=== PATIENT | female | born 1950 | race African-American/Black ===

== ENCOUNTER 2024-07-01 23:21 | Inpatient (IN) | payer OTHER, MEDICAID ==
[~2024-07-01] VITALS: Ht 152.4 cm; Wt 138.3 kg
--- NOTE | 2024-07-01 23:36 | ED.PDOC ---
History of Present Illness HPI Comments 74-year-old female presents with a chief complaint of chest pain x onset 1700 this afternoon with associated swelling to her bilateral legs. Patient states that her chest pain is localized to her right chest, non-radiating, describes as sharp, and rates her pain a 5/10. Patient was given ASA and NTG en route by EMS. Patient has history of a valve replacement in the past. Patient is alert and oriented. Chief Complaint: Chest Pain Time Seen by MD: 23:33 Primary Care Provider: ANU Vanegas Notes: Medications, Allergies Allergies: Coded Allergies: NO KNOWN ALLERGIES (Unverified , 09/17/11) Home Meds Active Scripts Cephalexin (KEFLEX CAPSULE) 250 Mg Cp, 2 CAP PO BID for 5 Days, #28 CAP Prov:CHANCE GILLIS RESIDENT 07/04/24 Reported Medications Potassium Chloride (POTASSIUM CHLORIDE CR) 10 Meq Tb, 1 TAB PO DAILY, #30 TAB 5 Refills 07/02/24 Metoprolol Succinate (Metoprolol Succinate Er) 25 Mg Tab, 25 MG PO DAILY for 30 Days, MG 07/02/24 Furosemide (Furosemide) 40 Mg Tab, 40 MG PO DAILY for 30 Days 07/02/24 Atorvastatin Calcium (ATORVASTATIN CALCIUM) 20 Mg Tab, 1 TAB PO DAILY, #30 TAB 5 Refills 07/02/24 Aspirin (Aspir-Low) 81 Mg Tab, 81 MG PO DAILY for 30 Days, MG 07/02/24 Information Source: Patient Mode of Arrival: EMS Severity: Moderate Timing: Hours Duration: Since onset Prehospital treatment: ASA, NTG Vital Signs Vital Signs Date Time Temp Pulse Resp B/P (MAP) Pulse Ox O2 Delivery O2 Flow Rate FiO2 07/02/24 00:33 98.7 93 12 130/62 (84) 95 98.7 07/02/24 00:20 Room Air* 0 21 Physical Exam General: Awake, alert and oriented. No acute distress. Skin: Skin in warm, dry and intact. Appropriate color for ethnicity. Nailbeds pink with no cyanosis. HEENT: The head is normocephalic and atraumatic. Conjunctivae are clear without exudates or hemorrhage. Sclera is non-icteric. EOM are intact. No signs of nystagmus. Eyelids are normal in appearance without swelling or lesions. Oral mucosa is pink and moist Neck: The neck is supple with normal range of motion. No JVD. Cardiac: Heart rate and rhythm are normal. No murmurs, gallops, or rubs are auscultated. Respiratory: No signs of respiratory distress. Lung sounds are clear in all lobes bilaterally without rales, ronchi, or wheezes. Abdominal: Abdomen is soft, non-tender without distention. Bowel sounds are present and normoactive in all four quadrants. Extremities: Bilateral lower extremity edema Neurological: The patient is awake, alert and oriented to person, place, and time with normal speech. Speech is clear. There is no facial asymmetry. Psychiatric: Appropriate mood and affect. Good judgement and insight. No visual or auditory hallucinations. Review of Systems: REVIEW OF SYSTEMS: No fever, no chills, or fatigue HEENT: No sore throat, no earache, no congestion, no neck pain. Cardiac: Positive chest pain. Positive palpitations. Lungs: No shortness of breath, no cough. GI: No nausea, no vomiting, no diarrhea, no constipation, no abdominal pain : No dysuria, frequency, or urgency. No hematuria. Musculoskeletal: No joint pain , no joint swelling, positive bilateral foot edema. Skin: No rash, no itching. Neuro: No headache, no dizziness, no weakness Past Medical History PAST MEDICAL HISTORY: Arthritis Surgical History: Hysterectomy Surgical History (Other): Valve Replacement Family History Family History: No family hx of Cancer Social History Smoker: Non-Smoker Alcohol: Denies ETOH Use Drugs: Denies Drug Use Lives In: Home Was a procedure done? Was a procedure done?: No EKG EKG : Pulse Rate (adult): 92 Walker: Normal Cardiac Rhythm: NSR Block: LBBB Hypertrophy: None ST: Normal Comments Independent interpretation. No STEMI Differential Dx Considerations may include: Differential diagnoses considered include acute ischemic coronary syndrome, aortic dissection, cardiac tamponade, mediastinitis, pulmonary embolus, pneumothorax, tension pneumothorax, esophageal rupture, coronary artery vasospasm, myocarditis, pericarditis, pneumonia, pulmonary edema, esophageal tear, pancreatitis, aortic stenosis, dilated cardiomyopathy, hypertrophic cardiomyopathy, mitral valve prolapse, malignancy, pleuritis, pneumomediastinum, primary pulmonary hypertension, cholecystitis, esophageal spasm, esophagus, gastritis, GERD, peptic ulcer disease, costochondritis, fibromyalgia, rib fracture, herpes zoster, radicular syndromes, thoracic outlet syndrome, somatization. X-Ray, Labs, Meds, VS Vital Signs Date Time Temp Pulse Resp B/P (MAP) Pulse Ox O2 Delivery O2 Flow Rate FiO2 07/02/24 00:33 98.7 93 12 130/62 (84) 95 98.7 07/02/24 00:20 92 07/02/24 00:20 93 12 95 Room Air* 0 21 07/01/24 23:45 92 07/01/24 23:29 98.8 97 18 93/68 (76) 96 07/01/24 23:24 92 Lab Test 07/02/24 00:42 07/02/24 00:25 07/01/24 23:35 Range/Units D-Dimer, Quantitative 1.37 H 0.0-0.49 mg/L FEU Troponin I High Sensitivity < 3 L < 3 L </=34 ng/L White Blood Count 10.3 4.4-10.8 10^3/uL Red Blood Count 4.14 4.0-5.20 10^6/uL Hemoglobin 12.3 12.2-16.2 g/dL Hematocrit 39.3 36.0-46.0 % Mean Corpuscular Volume 95.0 80.0-100.0 fL Mean Corpuscular Hemoglobin 29.9 28.0-32.0 pg Mean Corpuscular Hemoglobin Concent 31.4 L 32.0-36.0 g/dL Red Cell Distribution Width 15.2 H 11.8-14.3 % Platelet Count 146 140-450 10^3/uL Mean Platelet Volume 8.7 6.9-10.8 fL Neutrophils (%) (Auto) 46.9 37.0-80.0 % Lymphocytes (%) (Auto) 39.0 10.0-50.0 % Monocytes (%) (Auto) 11.7 0.0-12.0 % Eosinophils (%) (Auto) 1.9 0.0-7.0 % Basophils (%) (Auto) 0.5 0.0-2.0 % Neutrophils # (Auto) 4.8 1.6-8.6 10 ^3/uL Lymphocytes # (Auto) 4.0 0.4-5.4 10 ^3/uL Monocytes # (Auto) 1.2 0-1.3 10 ^3/uL Eosinophils # (Auto) 0.2 0-0.8 10 ^3/uL Basophils # (Auto) 0 0-0.2 10 ^3/uL Nucleated Red Blood Cells 0.1 % Sodium Level 143 136-145 mmol/L Potassium Level 3.8 3.5-5.1 mmol/L Chloride Level 109 H 98-107 mmol/L Carbon Dioxide Level 26 20-31 mmol/L Anion Gap 8 5-15 Blood Urea Nitrogen 12 9-23 mg/dL Creatinine 0.89 0.550-1.02 mg/dL Glomerular Filtration Rate Calc 68 >90 mL/min BUN/Creatinine Ratio 13.5 10.0-20.0 Serum Glucose 115 H 74-106 mg/dL Calcium Level 10.4 8.7-10.4 mg/dL Total Bilirubin 0.5 0.2-1.0 mg/dL Aspartate Amino Transferase (AST) 19 13-40 U/L Alanine Aminotransferase (ALT) 14 7-40 U/L Alkaline Phosphatase 107 46-116 U/L B-Type Natriuretic Peptide 23.54 0-100 pg/mL Total Protein 7.2 5.7-8.2 g/dL Albumin 4.0 3.2-4.8 g/dL Lipase 36 12-53 U/L Time of 1ST Reevaluation: 00:03 Reevaluation 1ST: Unchanged Patient Education/Counseling: Diagnosis, Treatment, Prognosis Family Education/Counseling: No Family Present Departure 1 Departure Time of Disposition: 01:22 Impression: Primary Impression: Chest pain Disposition: ADMITTED INPATIENT Condition: Stable e-Prescriptions Cephalexin (KEFLEX CAPSULE) 250 Mg Cp 2 CAP PO BID for 5 Days, #28 CAP Prov: CHANCE GILLIS RESIDENT 07/04/24 Comments I reviewed the following notes from the pt's past medical encounters: The following tests were ordered, and results were reviewed by me: Labs, imaging Additional information was gathered from interviewing the following independent historians: EMS, patient's at bedside I reviewed and agreed with the following test results read by other providers: Chest x-ray I discussed treatments and results with medical personnel and: Patient, nurse, patient's family Critical Care Note Critical Care Time?: No Stability Stability form required: No I personally scribed for WALE HUI MD ([email or web address]) on 07/01/24 at 23:36. Electronically submitted by Antwon Herrera ([email or web address]). I personally scribed for WALE HUI MD ([email or web address]) on 07/01/24 at 23:45. Electronically submitted by Antwon Herrera ([email or web address]). WALE HUI MD Jul 01, 2024 23:36
[2024-07-01 23:49] LABS: Basophils # (auto) 0 10 ^3/uL (0-0.2); Basophils % (auto) 0.5 % (0.0-2.0); Eosinophils # (auto) 0.2 10 ^3/uL (0-0.8); Eosinophils % (auto) 1.9 % (0.0-7.0); Hematocrit 39.3 % (36.0-46.0); Hemoglobin 12.3 g/dL (12.2-16.2); Mean Corpuscular Hemoglobin 29.9 pg (28.0-32.0); Mean Corpuscular Hgb Conc. 31.4 g/dL (32.0-36.0); Monocytes # (auto) 1.2 10 ^3/uL (0-1.3); Monocytes % (auto) 11.7 % (0.0-12.0); Neutrophils # (auto) 4.8 10 ^3/uL (1.6-8.6); Neutrophils % (auto) 46.9 % (37.0-80.0); Nucleated Red Blood Cells % 0.1 %; Platelet Count (auto) 146 10^3/uL (140-450); Red Blood Cells 4.14 10^6/uL (4.0-5.20); Red Cell Distribution Width 15.2 % (11.8-14.3); White Blood Cell 10.3 10^3/uL (4.4-10.8)
[2024-07-02] VITALS (9 sets, daily range): BP systolic 111–156; BP diastolic 60–111; PULSE 90–101; RESP 12–97; TEMP 97.4–98.1; O2SAT 95–98
[2024-07-02] MEDS: MORPHINE SULFATE INJ 2 MG/ml SYRG IV ONE
[2024-07-02 00:05] LABS: Alanine Aminotransferase 14 U/L (7-40); Alkaline Phosphatase 107 U/L (46-116); Anion Gap 8 (5-15); Aspartate Aminotransferase 19 U/L (13-40); BUN/Creatinine Ratio 13.5 (10.0-20.0); Blood Urea Nitrogen 12 mg/dL (9-23); Calcium 10.4 mg/dL (8.7-10.4); Carbon Dioxide 26 mmol/L (20-31); Lipase 36 U/L (12-53); Potassium 3.8 mmol/L (3.5-5.1); Sodium 143 mmol/L (136-145)
[2024-07-02 00:06] LABS: Bilirubin, Total 0.5 mg/dL (0.2-1.0); Total Protein 7.2 g/dL (5.7-8.2)
[2024-07-02 00:07] LABS: Chloride 109 mmol/L (98-107); Glucose 115 mg/dL (74-106)
[2024-07-02] MEDS: ONDANSETRON HCL 4 MG/2 ML VIAL IV ONE (00:30)
--- NOTE | 2024-07-02 01:00 | DVH ---
EXAM: XY CHEST PORTABLE CLINICAL HISTORY: cp TECHNIQUE: Single AP view of the chest WID: COMPARISON: None FINDINGS: Lines and tubes: Transcatheter aortic valve Chest: Cardiomegaly and pulmonary vascular congestion. Prominence of the main pulmonary artery. Calcified plaque projects over the aortic arch No pleural effusion, pneumothorax, or consolidation. The osseous structures are grossly intact. Multilevel thoracic spondylosis. IMPRESSION: 1. Mild cardiomegaly and pulmonary vascular congestion. 2. Prominence of the main pulmonary artery which can be seen in the setting of pulmonary hypertension .
[2024-07-02] MEDS ORDERED: NITROGLYCERIN 0.4 MG SL TAB SL PRN (01:45)
[2024-07-02] MEDS ORDERED: MORPHINE SULFATE INJ 2 MG/ml SYRG IV PRN (01:45)
[2024-07-02] MEDS: IOHEXOL 350 MG/ML 100ML IJ ONE (01:53)
--- NOTE | 2024-07-02 01:55 | DVHHPRES ---
History of Present Illness Resident Creating Document: VIVIAN WHEELER RESIDENT History of Present Illness Ms Flores, a 74-year-old black female with a history of arthritis, hysterectomy, and surgical valve replacement presented with moderate, sharp chest pain (5/10) localized to her lower right chest to the subcostal area, which began at 1700 hours, and swelling in both legs. She received ASA and NTG from EMS en route. The patient is alert, oriented, and has no known allergies. She remains hemodynamically stable and has been admitted for further evaluation and monitoring, with safety precautions in place. She is extremely poor historian and could not tell me further about her medical history but she has 3 sp ecialists [place] and has a pending evaluation likely for orthopedic procedure. She could only tell she takes aspirin and anti-lipid medication but could not clarify that if she takes warfarin given her history of valve surgery. The patient is requested to bring all the home medication and records as soon as possible to bedside with the help of the for further evaluation. Cardiovascular: Other Heme/Onc: Anemia NOS Endocrine: Osteoporosis (valve surgery.) Past Surgical History: Hysterectomy Past Surgical History Valve surgery, limited history Family History: Hyperlipidemia, Hypertension Smoke: No ALCOHOL: none Drugs: None Lives: with Family Domestic Violence: Neg Review of Systems Constitutional: Yes: Weakness, Malaise Eyes: No: Pain, Vision change, Conjunctivae inflammation, Eyelid inflammation, Other, Redness ENT: No: Ear pain, Ear discharge, Nose pain, Nose discharge, Nose congestion, Mouth pain, Mouth swelling, Throat pain, Throat swelling, Other Respiratory: No: Cough, Dry, Shortness of breath, SOB with excertion, Wheezing, Hemoptysis, Pleuritic Pain, Sputum, Wheezing, Other Cardiovascular: Chest Pain, Edema, Other Gastrointestinal: No: Nausea, Vomiting, Abdominal Pain, Diarrhea, Constipation, Melena, Hematochezia, Other Genitourinary: No Dysuria, No Frequency, No Incontinence, No Hematuria, No Retention, No Other Musculoskeletal: No: other, neck pain, shoulder pain, arm pain, back pain, hand pain, leg pain, foot pain Skin: Other Neurological: Other (Left eye ptosis) Allergies: Coded Allergies: NO KNOWN ALLERGIES (Unverified , 09/17/11) Medications Current Medications Medications Dose Ordered Sig/Romeo Route Start Time Stop Time Status Last Admin Dose Admin Nitroglycerin 0.4 mg Q5MINP PRN SL 07/02/24 01:45 UNV Morphine Sulfate 2 mg Q30M PRN IV 07/02/24 01:45 UNV Exam Vital Signs Vital Signs Date Time Temp Pulse Resp B/P (MAP) Pulse Ox O2 Delivery O2 Flow Rate FiO2 07/02/24 00:20 92 07/01/24 23:29 98.8 18 93/68 (76) 96 General Appearance: Alert, Oriented X3, Cooperative, No acute distress HEENT: Atraumatic, PERRLA, EOMI, Mucous membr. moist/pink, Other (Left eye ptosis at baseline) Respiratory: Normal air movement, Other (Basal crackles bilateral) Cardiovascular: Regular rate, Normal S1, Normal S2, No murmurs Abdominal: Normal bowel sounds, Soft, No tenderness, No hepatospenomegaly Extremities: Other (Presence of edema 3+. Pitting) Skin: No rashes, No breakdown, No significant lesion Neuro: Other (Overall patient has felt weak, deferred gait testing, gross stent intact, sensation and cranial nerves intact.) Psych/Mental Status: Mental status NL, Mood NL Labs/Xrays Labs Test 07/02/24 00:42 07/02/24 00:25 07/01/24 23:35 Range/Units D-Dimer, Quantitative 1.37 H 0.0-0.49 mg/L FEU Troponin I High Sensitivity < 3 L </=34 ng/L White Blood Count 10.3 4.4-10.8 10^3/uL Red Blood Count 4.14 4.0-5.20 10^6/uL Hemoglobin 12.3 12.2-16.2 g/dL Hematocrit 39.3 36.0-46.0 % Mean Corpuscular Volume 95.0 80.0-100.0 fL Mean Corpuscular Hemoglobin 29.9 28.0-32.0 pg Mean Corpuscular Hemoglobin Concent 31.4 L 32.0-36.0 g/dL Red Cell Distribution Width 15.2 H 11.8-14.3 % Platelet Count 146 140-450 10^3/uL Mean Platelet Volume 8.7 6.9-10.8 fL Neutrophils (%) (Auto) 46.9 37.0-80.0 % Lymphocytes (%) (Auto) 39.0 10.0-50.0 % Monocytes (%) (Auto) 11.7 0.0-12.0 % Eosinophils (%) (Auto) 1.9 0.0-7.0 % Basophils (%) (Auto) 0.5 0.0-2.0 % Neutrophils # (Auto) 4.8 1.6-8.6 10 ^3/uL Lymphocytes # (Auto) 4.0 0.4-5.4 10 ^3/uL Monocytes # (Auto) 1.2 0-1.3 10 ^3/uL Eosinophils # (Auto) 0.2 0-0.8 10 ^3/uL Basophils # (Auto) 0 0-0.2 10 ^3/uL Nucleated Red Blood Cells 0.1 % Sodium Level 143 136-145 mmol/L Potassium Level 3.8 3.5-5.1 mmol/L Chloride Level 109 H 98-107 mmol/L Carbon Dioxide Level 26 20-31 mmol/L Anion Gap 8 5-15 Blood Urea Nitrogen 12 9-23 mg/dL Creatinine 0.89 0.550-1.02 mg/dL Glomerular Filtration Rate Calc 68 >90 mL/min BUN/Creatinine Ratio 13.5 10.0-20.0 Serum Glucose 115 H 74-106 mg/dL Calcium Level 10.4 8.7-10.4 mg/dL Total Bilirubin 0.5 0.2-1.0 mg/dL Aspartate Amino Transferase (AST) 19 13-40 U/L Alanine Aminotransferase (ALT) 14 7-40 U/L Alkaline Phosphatase 107 46-116 U/L B-Type Natriuretic Peptide 23.54 0-100 pg/mL Total Protein 7.2 5.7-8.2 g/dL Albumin 4.0 3.2-4.8 g/dL Lipase 36 12-53 U/L [facility] [id number] [place] [id number] Ph: [phone] DIAGNOSTIC IMAGING Diagnostic Imaging Report : [id number] Signed PATIENT: JOSE FLORES ACCT: [id number] UNIT: [id number] : 1950 LOC: ER ROOM / BED: / AGE / SEX: 74 / F ADM STATUS: REG ER SERVICE [id number] ORDERING PHYSICIAN: AUDRA BAUTISTA DO PROCEDURE(s): CXRP - CHEST PORTABLE REASON: cp ORDER NUMBER(s): [id number], ACCESSION NUMBER(s): [id number] EXAM: XY CHEST PORTABLE CLINICAL HISTORY: cp TECHNIQUE: Single AP view of the chest WID: COMPARISON: None FINDINGS: Lines and tubes: Transcatheter aortic valve Chest: Cardiomegaly and pulmonary vascular congestion. Prominence of the main pulmonary artery. Calcified plaque projects over the aortic arch No pleural effusion, pneumothorax, or consolidation. The osseous structures are grossly intact. Multilevel thoracic spondylosis. IMPRESSION: 1. Mild cardiomegaly and pulmonary vascular congestion. 2. Prominence of the main pulmonary artery which can be seen in the setting of pulmonary hypertension. ATED BY: KYLER WEBBER MD DICTATED DATE/TIME: 07/02/2456 SIGNED BY: KYLER WEBBER MD SIGNED DATE/TIME: 07/02/2456 CC: [place] [address] Ph: [phone] DIAGNOSTIC IMAGING Diagnostic Imaging Report : [id number] Signed PATIENT: JOSE FLORES ACCT: [id number] UNIT: [id number] : 1950 LOC: [facility] ROOM / BED: [address] [place] [address] AGE / SEX: 74 / F ADM STATUS: ADM IN SERVICE 9 ORDERING PHYSICIAN: WALE HUI MD PROCEDURE(s): CTACH - CT ANGIO CHEST CONTRAST REASON: +d-dimer chest pain ? PE ORDER NUMBER(s): [id number], ACCESSION NUMBER(s): [id number] Patient Name Date of ISABELLE GARCIA 1950 [id number] Referring Physician Faxed To WALE HUI View Requested Screen Save Indication Date 07/02/2024 Exam Date Report Date 07/02/2024 07/02/2024 Examination: CTACH CLINICAL INDICATION: +d-dimer chest pain ? PE COMPARISON: None. CONTRAST USED: Intravenous. TECHNIQUE: A contrast CT study of the chest was performed with multiplanar reconstructions obtained following ALARA (As Low As Reasonably Achievable) principles. FINDINGS: Lower Neck and Thyroid: Unremarkable. Lungs and Pleura: Linear fibrotic band in the right lower lobe and right posterior pleural thickening. No acute infiltrates or effusion. No pulmonary nodules detected. Mediastinum and Great Vessels: Trachea and mainstem bronchi are normal. Mild atherosclerotic calcification of the aortic root, coronary arteries, and aortic arch. Stent present at the aortic root. Dilated pulmonary trunk (3.4 cm) and bilateral pulmonary arteries (approximately 25 mm). Changes of pulmonary hypertension. Significant tortuous course of the left common carotid artery. No mediastinal lymphadenopathy. Heart and Pericardium: Mild cardiomegaly. Normal cardiac size otherwise. No pericardial effusion. Pleural Spaces: Clear bilaterally. Chest Wall and Axillae: Unremarkable. Osseous Structures: Mild osteopenia. Vanswxfo-le-nrpqsj degenerative changes in the mid and lower thoracic spine, with prominent lateral syndesmophytes and multilevel degenerative facet arthropathy. Moderate narrowing of the neural foramina from T4-T5 to T9-T10 levels. Post-laminectomy status at C5-C6 and C6-C7 levels in the lower cervical spine. Severe degenerative changes in the bilateral glenohumeral joints, right more than left. Multiple calcified loose bodies in the right glenohumeral joint. Probable partial resorption of the right humeral head. Visualized Upper Abdomen: Liver: Mild hepatomegaly with fatty infiltration, widening of the interlobar fissures, and caudate lobe hypertrophy, suggesting liver parenchymal disease. Spleen: Borderline splenomegaly. Gallbladder, Pancreas, and Adrenal Glands: Unremarkable. Kidneys: Probable small size of the left kidney with compensatory hypertrophy of the right kidney. Vessels: Atherosclerotic calcification of the coronary arteries, aortic arch, origin of the arch vessels, and descending thoracic aorta. Atherosclerotic calcification of the abdominal aorta and visceral arteries with no significant narrowing or occlusion. IMPRESSION: 1. Lung and Pleura: Linear fibrotic band in the right lower lobe and posterior pleural thickening. 2. No acute infiltrates or effusion. 3. Cardiovascular Findings: Mild cardiomegaly. 4. Stent in the aortic root. 5. Dilated pulmonary trunk (3.4 cm) and bilateral pulmonary arteries (~25 mm). Changes of pulmonary hypertension. No acute pulmonary thromboembolism. 6. Atherosclerotic calcification of the coronary arteries, aortic arch, origin of arch vessels, and descending thoracic aorta. 7. Significant tortuosity of the left common carotid artery. 8. Liver and Spleen: Mild hepatomegaly with fatty infiltration and features of liver parenchymal disease. 9. Borderline splenomegaly. 10. Kidneys: Probable small left kidney with compensatory hypertrophy of the right kidney. 11. Skeletal Findings: Crhzckir-xr-zzvpcu degenerative changes in the mid and l ower thoracic spine with neural foraminal narrowing from T4-T5 to T9-T10 levels. 12. Severe bilateral glenohumeral joint degeneration with multiple calcified loose bodies in the right joint and probable partial resorption of the right humeral head. 13. Post-Surgical Changes: Post-laminectomy status at C5-C6 and C6-C7. Papa Sow Electronically Signed 07/02/2024 04:25 Reviewed By: DT QA By: SY DICTATED BY: LYNNE WAGNER MD DICTATED DATE/TIME: 07/02/24 0425 SIGNED BY: LYNNE WAGNER MD SIGNED DATE/TIME: 07/02/24 0537 CC: [place] [address] Ph: [phone] DIAGNOSTIC IMAGING Diagnostic Imaging Report : [id number] Signed PATIENT: JOSE FLORES ACCT: [id number] UNIT: [id number] : 1950 LOC: ER ROOM / BED: / AGE / SEX: 74 / F ADM STATUS: REG ER SERVICE ORDERING PHYSICIAN: AUDRA BAUTISTA DO PROCEDURE(s): CXRP - CHEST PORTABLE REASON: cp ORDER NUMBER(s): [id number], ACCESSION NUMBER(s): [id number] EXAM: XY CHEST PORTABLE CLINICAL HISTORY: cp TECHNIQUE: Single AP view of the chest WID: COMPARISON: None FINDINGS: Lines and tubes: Transcatheter aortic valve Chest: Cardiomegaly and pulmonary vascular congestion. Prominence of the main pu lmonary artery. Calcified plaque projects over the aortic arch No pleural effusion, pneumothorax, or consolidation. The osseous structures are grossly intact. Multilevel thoracic spondylosis. IMPRESSION: 1. Mild cardiomegaly and pulmonary vascular congestion. 2. Prominence of the main pulmonary artery which can be seen in the setting of pulmonary hypertension. ATED BY: KYLER WEBBER MD DICTATED DATE/TIME: 07/02/24 0057 SIGNED BY: KYLER WEBBER MD SIGNED DATE/TIME: 07/02/2456 CC: EKG Name: JOSE FLORES Acct: [id number] [place] [address] ELECTROCARDIOGRAM REPORT PATIENT: JOSE FLORES ACCT: [id number] : 1950 LOC: [facility] ROOM / BED: [address] [place] [address] AGE / SEX: 74 / F ADM STATUS: ADM IN SERVICE UNIT: [id number] ORDERING PHYSICIAN: AUDRA BAUTISTA DO PROCEDURE(s): EKG - ELECTROCARDIGRAM ORDER NUMBER(s): [id number], ACCESSION NUMBER(s): [id number] [facility] Test Date: 2024-07-02 Test Time: 00:20:05 Pat Name: JOSE FLORES Department: ED Room: [address] [place] [address] Gender: F Dog Beautician: NELLIE : 1950 Requested By: AUDRA BAUTISTA Order Number: [id number] Reading MD: Measurements Intervals [place] Rate: 92 P: 77 LA: 165 QRS: 32 QRSD: 153 T: 203 QT: 400 QTc: 495 Interpretive Statements Sinus rhythm Prominent P waves, nondiagnostic Left bundle branch block Please click the below link to view image of tracing. DICTATED BY: DICTATED DATE/TIME:07/02/2419 ELECTRONICALLY SIGNED BY: ELECTRONICALLY CO-SIGNED BY: Assessment/Plan Assessment/Plan Assessment: A 74-year-old femaleIf past medical history significant for ar thritis, hysterectomy, surgical valve replacement, presented with moderate chest pain localized to her right chest, described as sharp and rated 5/10, which began at 1700 hours. She also reported swelling in both legs. She received ASA and NTG from EMS en route. The patient has a history of valve replacement, is alert and oriented, and has no known allergies. Patient remains hemodynamically stable, admitted in hospital telemetry for further evaluation and workup with close monitoring Plan: #1 Acute chest pain: Reproducible could be, musculoskeletal, CXR unremarkable, mild cardiomegaly, EKG NSR, LBBB, troponin and BNP unremarkable. Keep the patient on telemetry, keep the potassium above 4, magnesium of 2. Reviewed EKG. Echo pending tomorrow. Urinalysis urine tox to check. Mildly elevated D- dimer, 1.37, age adjusted normalized. ESR CRP unremarkable to rule out pleurisy/ pericarditis. #2 left bundle-branch block: unlikely new onset. #3 ACS/STEMI ruled out. But high-risk of underlying CAD with recurrent chest pain needing possible nuclear stress test Might be done outpatient gtz. check Echo before discharge. #4 Major pulmonary arterial PE Ruled out #5 Possible CHF HFpEF/HFrEF: Mild cardiomegaly Echo pending for structural heart disease and ejection fraction determination. #6 Previous history of cardiac valve replacement: Stent in the aortic root, patient denies being on warfarin. Check for INR #7 Pulmonary hypertension: Likely with dilated pulmonary trunk and bilateral p ulmonary arteries, presently on room air, patient is bilateral lower leg swelling could be due to isolated right heart failure, needs further evaluation #8 Extensive coronary artery disease: Major arteries including aorta high ca lcification and atherosclerotic burden. #9 Carotid artery tortuosity: No bruit heard, pulsation intact, denies any history of syncope recently. #10: Hepatosplenomegaly: Could be due to hepatic congestion/heart failure continue diuresis. #11 Degenerative disc disease: Moderate to severe changes in the thoracic spine with neural foraminal narrowing of the T4/T5, T9/T10 levels. #12 Post-laminectomy status at C5-C6 and C6-C7, chronic low back pain. #13 Osteoarthritis: Ybij-nw-vuyr, joint tenderness, noted in imaging. #14 Grade 3 obesity with BMI of 45.3 #15 Known dyslipidemia: Continue atorvastatin and aspirin. Check lipid level and HbA1c. #16 Normocytic normochromic anemia: FOBT to check, continue PPI no major blood loss noted by the patient Diet: NPO in the anticipation of Possible in-hospital stress test. cardiac diet when needed. PUD prophylaxis: protonix 40mg/not needed DVT prophylaxis: Levonox 40mg/SCD/brisk movement. Barriers to discharge: Medical diagnosis and management in progress. Patient lives with family. Independent for ADL. PT and SW consult as needed. PCP: Dr. Whitmore. Specialist Relevant To Admission: Cardiology, down the olney. Details yet to discovered from further documentation. Case discussed with Dr. Ashraf. Code Status: Full Code. Discussion needed total 29 minutes bedside. Plan discussed with: Patient, Other (Primary team, RN) My Orders Orders - VIVIAN WHEELER Procedure Category Date Status Time Admit ADMIT 07/02/24 Transmitted 01:41 Nitroglycerin [facility] 07/02/24 Logged Sublingual (Ntrostat 01:45 Morphine Sulfate [facility] 07/02/24 Logged Injection 01:45 Oxygen By Nasal RT 07/02/24 Transmitted Cannula 01:41 Stat Ekg For Chest [facility] 07/02/24 In Process Pain 01:41 Notify Md Of Changes [facility] 07/02/24 In Process From Base 01:41 Rn Otolaryngology For [facility] 07/02/24 In Process 24 Hours 01:41 Emergency Dysrhythmia [facility] 07/02/24 In Process Protocol 01:41 Rhythm Strips Once [facility] 07/02/24 In Process Every Shift 01:41 Date of Service: Jul 02, 2024 Billing Provider: THA ASHRAF MD Common Visit Codes: 66897-[id number] INP/OBS CARE (HIGH) Secondary Visit Codes: 86525-[id number] CARE PLAN 30 MINUTES VIVIAN WHEELER Jul 02, 2024 01:55 THA ASHRAF MD Jul 03, 2024 14:59
--- NOTE | 2024-07-02 05:37 | DVH ---
Patient Name Date of ISABELLE GARCIA 1950 [id number] Referring Physician Faxed To WALE HUI Requested Screen Save Indication Date 07/02/2024 Exam Date Report Date 07/02/2024 07/02/2024 Examination: CTACH CLINICAL INDICATION: +d-dimer chest pain ? PE COMPARISON: None. CONTRAST USED: Intravenous. TECHNIQUE: A contrast CT study of the chest was performed with multiplanar reconstructions obtained following ALARA (As Low As Reasonably Achievable) principles. FINDINGS: Lower Neck and Thyroid: Unremarkable. Lungs and Pleura: Linear fibrotic band in the right lower lobe and right posterior pleural thickening. No acute infiltrates or effusion. No pulmonary nodules detected. Mediastinum and Great Vessels: Trachea and mainstem bronchi are normal. Mild atherosclerotic calcification of the aortic root, coronary arteries, and aortic arch. Stent present at the aortic root. Dilated pulmonary trunk (3.4 cm) and bilateral pulmonary arteries (approximately 25 mm). Changes of pulmonary hypertension. Significant tortuous course of the left common carotid artery. No mediastinal lymphadenopathy. Heart and Pericardium: Mild cardiomegaly. Normal cardiac size otherwise. No pericardial effusion. Pleural Spaces: Clear bilaterally. Chest Wall and Axillae: Unremarkable. Osseous Structures: Mild osteopenia. Hrfzdiwe-zr-tsfesg degenerative changes in the mid and lower thoracic spine, with prominent lateral syndesmophytes and multilevel degenerative facet arthropathy. Moderate narrowing of the neural foramina from T4-T5 to T9-T10 levels. Post-laminectomy status at C5-C6 and C6-C7 levels in the lower cervical spine. Severe degenerative changes in the bilateral glenohumeral joints, right more than left. Multiple calcified loose bodies in the right glenohumeral joint. Probable partial resorption of the right humeral head. Visualized Upper Abdomen: Liver: Mild hepatomegaly with fatty infiltration, widening of the interlobar fissures, and caudate lobe hypertrophy, suggesting liver parenchymal disease. Spleen: Borderline splenomegaly. Gallbladder, Pancreas, and Adrenal Glands: Unremarkable. Kidneys: Probable small size of the left kidney with compensatory hypertrophy of the right kidney. Vessels: Atherosclerotic calcification of the coronary arteries, aortic arch, origin of the arch vessels, and descending thoracic aorta. Atherosclerotic calcification of the abdominal aorta and visceral arteries with no significant narrowing or occlusion. IMPRESSION: 1. Lung and Pleura: Linear fibrotic band in the right lower lobe and posterior pleural thickening. 2. No acute infiltrates or effusion. 3. Cardiovascular Findings: Mild cardiomegaly. 4. Stent in the aortic root. 5. Dilated pulmonary trunk (3.4 cm) and bilateral pulmonary arteries (~25 mm). Changes of pulmonary hypertension. No acute pulmonary thromboembolism. 6. Atherosclerotic calcification of the coronary arteries, aortic arch, origin of arch vessels, and descending thoracic aorta. 7. Significant tortuosity of the left common carotid artery. 8. Liver and Spleen: Mild hepatomegaly with fatty infiltration and features of liver parenchymal disease. 9. Borderline splenomegaly. 10. Kidneys: Probable small left kidney with compensatory hypertrophy of the right kidney. 11. Skeletal Findings: Amonggws-pe-giacaj degenerative changes in the mid and lower thoracic spine with neural foraminal narrowing from T4-T5 to T9-T10 levels. 12. Severe bilateral glenohumeral joint degeneration with multiple calcified loose bodies in the right joint and probable partial resorption of the right humeral head. 13. Post-Surgical Changes: Post-laminectomy status at C5-C6 and C6-C7. Papa Sow. Electronically Signed 07/02/2024 04:25 Reviewed By: CARLINE QA By: LITTLE BROWNING
[2024-07-02 05:45] LABS: Basophils # (auto) 0.1 10 ^3/uL (0-0.2); Basophils % (auto) 0.8 % (0.0-2.0); Eosinophils # (auto) 0.2 10 ^3/uL (0-0.8); Eosinophils % (auto) 2.3 % (0.0-7.0); Hematocrit 35.3 % (36.0-46.0); Hemoglobin 11.7 g/dL (12.2-16.2); Lymphocytes # (auto) 2.7 10 ^3/uL (0.4-5.4); Mean Corpuscular Hemoglobin 30.3 pg (28.0-32.0); Mean Corpuscular Hgb Conc. 33.2 g/dL (32.0-36.0); Mean Corpuscular Volume 91.2 fL (80.0-100.0); Monocytes # (auto) 0.8 10 ^3/uL (0-1.3); Monocytes % (auto) 9.5 % (0.0-12.0); Neutrophils # (auto) 4.4 10 ^3/uL (1.6-8.6); Neutrophils % (auto) 54.4 % (37.0-80.0); Nucleated Red Blood Cells % 0.1 %; Platelet Count (auto) 158 10^3/uL (140-450); Red Blood Cells 3.87 10^6/uL (4.0-5.20); Red Cell Distribution Width 14.4 % (11.8-14.3)
[2024-07-02 05:46] LABS: Anion Gap 7 (5-15); Carbon Dioxide 28 mmol/L (20-31); Potassium 3.9 mmol/L (3.5-5.1); Sodium 142 mmol/L (136-145)
[2024-07-02 05:52] LABS: BUN/Creatinine Ratio 16.7 (10.0-20.0); Blood Urea Nitrogen 14 mg/dL (9-23)
[2024-07-02 05:53] LABS: CRP High Sensitivity 0.12 mg/dL (<1.0); Magnesium 1.9 mg/dL (1.6-2.6)
--- NOTE | 2024-07-02 06:37 | ECG ---
[facility] Test Date: 2024-07-01 Test Time: 23:24:19 Pat Name: JOSE FLORES Department: ED Room: 0220T Gender: F Certified Mortician: NELLIE : 1950 Requested By: AUDRA BAUTISTA Order Number: [id number] Reading MD: Saúl Neil Measurements Intervals [place] Rate: 92 P: 72 MA: 162 QRS: 29 QRSD: 154 T: 197 QT: 390 QTc: 483 Interpretive Statements Sinus rhythm Left bundle branch block Electronically Signed On 07-02-2024 16:31:15 PST by Saúl Neil Please click the below link to view image of tracing.
--- NOTE | 2024-07-02 06:38 | ECG ---
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
[2024-07-02 06:42] LABS: Chloride 107 mmol/L (98-107); Glucose 107 mg/dL (74-106)
[2024-07-02 07:31] LABS: Erythrocyte Sedimentation Rate 22 mm/hr (0-20)
[2024-07-02 09:35] LABS: INR 1.11 (0.9-1.15); Prothrombin Time 11.7 sec (9.3-11.8)
[2024-07-02 09:35] LABS: Urine Bacteria None Seen /hpf (None Seen)
[2024-07-02 09:50] LABS: Triglycerides 60 mg/dL (< 150)
[2024-07-02 09:51] LABS: LDL Cholesterol 82 mg/dL (< 100)
[2024-07-02 09:52] LABS: Cholesterol 145 mg/dL (< 200); HDL Cholesterol 51 mg/dL (40-59)
[2024-07-02 09:55] LABS: Urine Blood Negative /uL (Negative); Urine Clarity Turbid (Clear); Urine Color Colorless (Yellow); Urine Mucus FEW (None Seen); Urine Protein, UAD Negative (Negative); Urine Urobilinogen Normal (Negative); Urine WBC 120 /hpf (0 - 5)
[2024-07-02] MEDS: LIDOCAINE 5% TOPICAL PATCH TOP SCH (10:00)
[2024-07-02] MEDS: ASPirin 81 mg TAB PO SCH (10:05)
[2024-07-02] MEDS: ENOXAPARIN SOD 40 MG/0.4 ML SYRINGE SC SCH (10:06)
[2024-07-02] MEDS: FUROSEMIDE 40 MG/4 ML VIAL IV SCH (10:06)
[2024-07-02 10:16] LABS: Benzodiazephine Screen, Urine Neg (NEGATIVE)
[2024-07-02 10:20] LABS: Amphetamine Screen, Urine Neg (NEGATIVE); Barbiturate Scree,Urine Neg (NEGATIVE); Cannabinoid Screen, Urine Neg (NEGATIVE); Cocaine Screen, Urine Neg (NEGATIVE); Opiate Scree,Urine Neg (NEGATIVE); Phencyclidine Screen, Urine Neg (NEGATIVE)
[2024-07-02] MEDS: PANTOPRAZOLE 40 MG TAB PO ONE (10:24)
[2024-07-02] MEDS ORDERED: POTA-36 PO (11:43)
[2024-07-02] MEDS ORDERED: FURO40TA4 PO (11:43)
[2024-07-02] MEDS ORDERED: ATOR20TA50 PO (11:43)
[2024-07-02] MEDS ORDERED: METO25TA93 PO (11:43)
[2024-07-02] MEDS ORDERED: ASPI-543 PO (11:43)
[2024-07-02] MEDS: BACLOFEN 10 MG TAB PO PRN (12:16)
--- NOTE | 2024-07-02 13:31 | DVHSR ---
APPROVED REPORT EXAM: Two-dimensional and M-mode echocardiogram with Doppler and color Doppler. Blood Pressure: 138/78 mmHg INDICATION Chest Pain Surgery/Intervention Valve Replacement: Mechanical Type: Aortic RISK FACTORS Height: 66, Weight: 280 DIMENSIONS LVDd4.6 (3.8-5.7cm)LA (2D)4.6 (1.9-4.0cm)Aortic Root3.2 (2.0-3.7cm) LVDs3.4 (2.5-4.0cm)LA (MM) (1.9-4.0cm)Aortic Cusp Exc (1.5-2.0cm) EF (%) 50.0 (55-70%)Rt. Atrium4.2 (1.9-4.0cm)Asc. Aorta2.9 cm IVSd1.5 (0.7-1.1cm)RV (D) (1.8-2.4cm) PWd1.2 (0.7-1.1cm) Mitral Valve MitralMitral Stenosis E wave2.53m/sMV Mean GR.12mmHg A wavem/sMV Peak GR.33mmHg E/A ratio0.02D MVAcm2 Aortic Valve Aortic ValveAortic Stenosis V11.09m/Slick Mean GR.14mmHg V22.78m/Slick Peak GR.31mmHg LVOT Diameter1.9 (1.8-2.4cm)Doppler AVA1.11cm2 Tricuspid Valve TR Velocity2.81m/s [id number] Conclusion Normal left ventricular size and dimension. Normal left ventricular systolic function estimated ejec tion fraction 50%. There is a grade 1 diastolic dysfunction. Normal right ventricular size and dimension. Normal right ventricular systolic function. Slightly increased right ventricular systolic pressure at 34 mm of mercury. Borderline dilated right and left atrium. Patient bioprosthetic aortic valve likely after transcutaneous aortic valve replacement. Well-seated normal gradient peak gradient of34 mean gradient of 14 no significant aortic valve regurgitation or stenosis was noted. The mitral valve is moderately thickened and calcific can not be visualized very well. Normal tricuspid valve structure and function. The pulmonary valve is grossly normal. No pericardial effusion.
--- NOTE | 2024-07-02 15:23 | DVH ---
EXAM: US BILAT LOWER DVT Clinical History: shortness of breath Comparison: None Technique: Duplex Doppler evaluation of the deep venous systems of both lower extremities from the common femora l veins to the popliteal veins including color Doppler and spectral/pulsed waveform analysis was perf ormed. Findings: No visible intraluminal venous thrombus. No evidence of incompressibility or abnormal color or spectr al Doppler flow visualized in the deep bilateral lower extremity veins. Proximal greater saphenous ve ins are grossly unremarkable. Impression: 1. No sonographic evidence of deep venous thrombosis throughout the bilateral lower extremities from the popliteal veins to the common femoral veins.
[2024-07-02] MEDS: METOPROLOL SUCCINATE XL 50 MG TAB PO ONE (16:50)
--- NOTE | 2024-07-02 17:16 | DVHPNRES ---
Progress Note Date Seen: Jul 02, 2024 Resident Creating Document: JOHN VERONICAMABLE RESIDENT Medical Necessity Reason Pt with a Central, PICC or Fol: Yes The following are medically ne: Stack Catheter Subjective Review of Systems Patient is a 74-year-old female with a past medical history as described below presented to the ED with a chief complaint of chest pain for a few hours prior to admission. Patient reported dull, right-sided chest pain, moderate 6-7/10 on intensity, nonradiating, occurred at rest while the patient was in a recliner, denied sweating, nausea vomiting abdominal pain. Patient was given 4 baby aspirins and nitroglycerin on route to the hospital by the EMS which relieved the pain. Patient reported that she feels short of breath on walking around in the house and recently had bilateral leg swelling for the last few days. Patient denies home oxygen. Reports history of sleep apnea. Initial 12 lead ECG showed left bundle-branch block with no evidence of acute ischemic changes, no ST changes. Troponin level were within normal limits. Past medical history: arthritis, ?Congestive Heart failure, rheumatoid arthritis, uterus cancer, breast cancer, history of aortic stenosis Past surgical history: Aortic valve replacement 2 years ago, hysterectomy, right breast surgery, back surgery for disc prolapse Social history: Lives with the in [place] and denies smoking, alcohol, drug use Home medication: Furosemide 40 mg once daily, metoprolol succinate 25 mg once daily, atorvastatin 40 mg once daily, apixaban 80 mg once daily, potassium 10 mEq b.i.d. Review of systems Patient seen and examined at the bedside. Alert and oriented x4. At the time of examination, patient denies denied chest pain, palpitations, dizziness, shortness of breath. Patient reports orthopnea. Mild pedal edema more on the left foot than the right. Patient reports back pain. Denies dysuria, abdominal pain, fever, chills. Objective vital signs Vital Sign Date Time Temp Pulse Resp B/P (MAP) Pulse Ox O2 Delivery O2 Flow Rate FiO2 07/02/24 16:50 90 150/79 07/02/24 16:45 98.1 18 98 98.1 07/02/24 09:02 Room Air* 0 21 medications Current Medications Medications Dose Ordered Sig/Romeo Route Start Time Stop Time Status Last Admin Dose Admin Nitroglycerin 0.4 mg Q5MINP PRN SL 07/02/24 01:45 Morphine Sulfate 2 mg Q30M PRN IV 07/02/24 01:45 Furosemide 40 mg DAILY IV 07/02/24 10:00 07/02/24 10:06 40 MG Aspirin 81 mg DAILY PO 07/02/24 10:00 07/02/24 10:05 81 MG Atorvastatin Calcium 40 mg HS PO 07/02/24 22:00 Baclofen 5 mg Q8HP PRN PO 07/02/24 09:15 07/02/24 12:16 5 MG Lidocaine 1 patch DAILY TOP 07/02/24 10:00 Pantoprazole Sodium 40 mg DAILY@0600 PO 07/03/24 06:00 Enoxaparin Sodium 40 mg DAILY SC 07/02/24 10:00 07/02/24 10:06 40 MG Metoprolol Succinate 25 mg DAILY PO 07/03/24 10:00 Examination Physical Examination Gen - no pallor, no icterus, no cyanosis, no clubbing, no LAD, 1+pedal edema Skin - Patients skin is warm and dry. HEENT - normocephalic, atraumatic, moist mucous membranes. Neck - full ROM, no LAD, no JVD Pulmonary - B/L vesicular breath sounds. no crackles , no wheezing, no stridor. cardiovascular - normal S1,S2 heard. no murmurs heard. peripheral pulses normal radial 2+, pedal 2+. capillary refill normal <2 secs. GI - soft abdomen without tenderness to palpation . no hepatospleenomegaly. Bowel sounds normoactive Neurological - Patient is A/O X 3 . Left upper extremity strength 5/5, right upper extremity strength 3/5, bilateral lower extremity strength 4/5, no facial droop, normal speech, no tremor, no sensory deficiets. laboratory and microbiology Laboratory Tests 07/02/24 05:19 Test 07/02/24 05:19 Range/Units Serum Glucose 107 H 74-106 mg/dL Problem List/Assessment/Plan Problem List/Assessment/Plan Assessment and plan # Acute chest pain, ACS ruled out, likely musculoskeletal - EKG showed sinus rhythm with left bundle-branch block, no ischemic changes - troponin levels within normal limits - BNP unremarkable - patient on telemetry - reproducible chest pain could be musculoskeletal - on aspirin 81 mg once daily - on atorvastatin 40 mg once a day # PE ruled out - D-dimer elevated 1.37 - CT angio showed no evidence of acute pulmonary embolism - bilateral lower extremity ultrasound shows no DVT # Acute on chronic heart failure with preserved ejection fraction - chest x-ray shows pulmonary vascular congestion with cardiomegaly - echo showed LVEF 50% with grade 1 diastolic dysfunction, slightly increased RVSP 34 mmHg - on furosemide 40 mg IV daily - metoprolol succinate 25 mg once daily # Pulmonary hypertension ?ABIDA - Stop Bang 6 - Echo shows slightly increased RVSP 34 mmHg with dilated pulmonary trunk and bilateral pulmonary arteries on CT angio - outpatient workup for ABIDA recommended # UTI likely acute cystitis - elevated leukocyte esterase, elevated nitrites, urine WBC - on ceftriaxone 1 g IV daily DVT prophylaxis: Lovenox 40 mg SC once daily PUD prophylaxis: Pantoprazole 40 mg once daily Goals of care discussed with the patient for over 33 minutes. Full code Plan discussed with Dr. Donnelly Plan discussed with: Patient, Spouse, Other (RN ( Corazon )) My Orders My Orders Orders - CHUY VERONICA Procedure Category Date Status Time * Scallop Raker CONS 07/02/24 Transmitted Consult 11:24 Bilat Lower Dvt US 07/02/24 Resulted 14:27 Metoprolol Xl PHA 07/03/24 In Process Succinate (Toprol Xl) 10:00 Date of Service: Jul 02, 2024 Billing Provider: MILENA BULLOCK MD Common Visit Codes: [id number] INP/OBS CARE(HIGH) CHUY VERONICA RESIDENT Jul 02, 2024 17:15 MILENA BULLOCK MD Jul 06, 2024 23:32
[2024-07-02] MEDS: ACETAMINOPHEN 325 MG TAB PO PRN (18:58)
[2024-07-02] MEDS: ATORVASTATIN 20 MG TAB PO SCH (22:00)
[2024-07-03 01:00] VITALS: BP 96/57; PULSE 82; RESP 19; TEMP 97.3; O2SAT 100
[2024-07-03 05:00] VITALS: BP 146/65; PULSE 81; RESP 20; TEMP 97.7; O2SAT 95
[2024-07-03] MEDS: PANTOPRAZOLE 40 MG TAB PO SCH (05:27)
[2024-07-03 07:15] LABS: Basophils # (auto) 0 10 ^3/uL (0-0.2); Basophils % (auto) 0.5 % (0.0-2.0); Eosinophils # (auto) 0.2 10 ^3/uL (0-0.8); Eosinophils % (auto) 2.4 % (0.0-7.0); Hematocrit 38.7 % (36.0-46.0); Hemoglobin 12.9 g/dL (12.2-16.2); Lymphocytes # (auto) 3.1 10 ^3/uL (0.4-5.4); Lymphocytes % (auto) 34.7 % (10.0-50.0); Mean Corpuscular Hemoglobin 30.5 pg (28.0-32.0); Mean Corpuscular Hgb Conc. 33.4 g/dL (32.0-36.0); Mean Corpuscular Volume 91.3 fL (80.0-100.0); Monocytes # (auto) 0.8 10 ^3/uL (0-1.3); Monocytes % (auto) 8.6 % (0.0-12.0); Neutrophils # (auto) 4.9 10 ^3/uL (1.6-8.6); Neutrophils % (auto) 53.8 % (37.0-80.0); Nucleated Red Blood Cells % 0.2 %; Platelet Count (auto) 149 10^3/uL (140-450); Red Blood Cells 4.24 10^6/uL (4.0-5.20); Red Cell Distribution Width 14.4 % (11.8-14.3)
[2024-07-03 07:53] LABS: Alanine Aminotransferase 13 U/L (7-40); Alkaline Phosphatase 75 U/L (46-116); Anion Gap 8 (5-15); Aspartate Aminotransferase 18 U/L (13-40); BUN/Creatinine Ratio 12.5 (10.0-20.0); Blood Urea Nitrogen 10 mg/dL (9-23); Carbon Dioxide 27 mmol/L (20-31)
[2024-07-03 07:54] LABS: Bilirubin, Total 0.9 mg/dL (0.2-1.0); Total Protein 7.2 g/dL (5.7-8.2)
[2024-07-03 08:00] VITALS: PULSE 88; PULSE 92; RESP 16; O2SAT 91
[2024-07-03 08:10] LABS: Calcium 8.3 mg/dL (8.7-10.4); Chloride 103 mmol/L (98-107); Glucose 119 mg/dL (74-106); Potassium 3.5 mmol/L (3.5-5.1); Sodium 138 mmol/L (136-145)
[2024-07-03] MEDS: cefTRIAXone 1GM/50ML D5W 50 ML IV SCH (09:57)
[2024-07-03] MEDS: METOPROLOL SUCCINATE XL 50 MG TAB PO SCH (10:16)
[2024-07-03 13:03] VITALS: BP 142/76; PULSE 83; RESP 17; TEMP 98.3; O2SAT 100
[2024-07-03] MEDS ORDERED: BACLOFEN 10 MG TAB PO ONE (15:45)
[2024-07-03 16:45] VITALS: BP 127/81; PULSE 90; RESP 16; TEMP 98.3; O2SAT 93
--- NOTE | 2024-07-03 18:02 | DVHDSRES ---
Discharge Summary Date of Admission Resident Creating Document: CHUY VERONICA RESIDENT Jul 02, 2024 at 01:42 Date of Discharge: Jul 03, 2024 Admitting Diagnosis # Acute chest pain # ACS/STEMI ruled ou # Major pulmonary arterial PE Ruled out # Possible CHF HFpEF/HFrEF # Previous history of cardiac valve replacement # Pulmonary hypertension # Carotid artery tortuosity # Hepatosplenomegaly # Degenerative disc disease # Post-laminectomy status at C5-C6 and C6-C7, chronic low back pain. # Osteoarthritis # Grade 3 obesity with BMI of 45.3 # Known dyslipidemia # Normocytic normochromic anemia: Wounds: no wounds Labs/Diagnostic Data: Laboratory Results Test 07/03/24 06:03 07/02/24 08:30 07/02/24 05:19 07/02/24 02:55 White Blood Count 9.0 10^3/uL (4.4-10.8) Red Blood Count 4.24 10^6/uL (4.0-5.20) Hemoglobin 12.9 g/dL (12.2-16.2) Hematocrit 38.7 % (36.0-46.0) Mean Corpuscular Volume 91.3 fL (80.0-100.0) Mean Corpuscular Hemoglobin 30.5 pg (28.0-32.0) Mean Corpuscular Hemoglobin Concent 33.4 g/dL (32.0-36.0) Red Cell Distribution Width 14.4 % (11.8-14.3) Platelet Count 149 10^3/uL (140-450) Mean Platelet Volume 9.8 fL (6.9-10.8) Neutrophils (%) (Auto) 53.8 % (37.0-80.0) Lymphocytes (%) (Auto) 34.7 % (10.0-50.0) Monocytes (%) (Auto) 8.6 % (0.0-12.0) Eosinophils (%) (Auto) 2.4 % (0.0-7.0) Basophils (%) (Auto) 0.5 % (0.0-2.0) Neutrophils # (Auto) 4.9 10 ^3/uL (1.6-8.6) Lymphocytes # (Auto) 3.1 10 ^3/uL (0.4-5.4) Monocytes # (Auto) 0.8 10 ^3/uL (0-1.3) Eosinophils # (Auto) 0.2 10 ^3/uL (0-0.8) Basophils # (Auto) 0 10 ^3/uL (0-0.2) Nucleated Red Blood Cells 0.2 % Sodium Level 138 mmol/L (136-145) Potassium Level 3.5 mmol/L (3.5-5.1) Chloride Level 103 mmol/L (98-107) Carbon Dioxide Level 27 mmol/L (20-31) Anion Gap 8 (5-15) Blood Urea Nitrogen 10 mg/dL (9-23) Creatinine 0.80 mg/dL (0.550-1.02) Glomerular Filtration Rate Calc 77 mL/min (>90) BUN/Creatinine Ratio 12.5 (10.0-20.0) Serum Glucose 119 mg/dL (74-106) Calcium Level 8.3 mg/dL (8.7-10.4) Total Bilirubin 0.9 mg/dL (0.2-1.0) Aspartate Amino Transferase (AST) 18 U/L (13-40) Alanine Aminotransferase (ALT) 13 U/L (7-40) Alkaline Phosphatase 75 U/L (46-116) Total Protein 7.2 g/dL (5.7-8.2) Albumin 4.0 g/dL (3.2-4.8) Urine Color Colorless (Yellow) Urine Clarity Turbid (Clear) Urine pH 8.0 (5.0-9.0) Urine Specific Union 1.030 (1.001-1.035) Urine Protein Negative (Negative) Urine Ketones Negative (Negative) Urine Blood Negative /uL (Negative) Urine Nitrite 2+ (Negative) Urine Bilirubin Negative (Negative) Urine Urobilinogen Normal mg/dL (Negative) Urine Leukocyte Esterase 2+ /uL (Negative) Urine RBC 1 /hpf (0 - 4) Urine WBC 120 /hpf (0 - 5) Urine Squamous Epithelial Cells Few /hpf (<5) Urine Bacteria None seen /hpf (None Seen) Urine Mucus Few (None Seen) Urine Glucose Normal mg/dL (Normal) Urine Opiates Screen Neg (NEGATIVE) Urine Fentanyl Screen Neg (NEGATIVE) Urine Barbiturates Screen Neg (NEGATIVE) Urine Phencyclidine Screen Neg (NEGATIVE) Urine Amphetamines Screen Neg (NEGATIVE) Urine Benzodiazepines Screen Neg (NEGATIVE) Urine Cocaine Screen Neg (NEGATIVE) Urine Cannabinoids Screen Neg (NEGATIVE) Erythrocyte Sedimentation Rate 22 mm/hr (0-20) Prothrombin Time 11.7 sec (9.3-11.8) Prothrombin Time INR 1.11 (0.9-1.15) Hemoglobin A1c 6.0 % A1C (<5.7) Magnesium Level 1.9 mg/dL (1.6-2.6) C-Reactive Protein High Sensitivity 0.12 mg/dL (<1.0) Triglycerides Level 60 mg/dL (< 150) Cholesterol Level 145 mg/dL (< 200) LDL Cholesterol 82 mg/dL (< 100) HDL Cholesterol 51 mg/dL (40-59) Thyroid Stimulating Hormone (TSH) 4.12 uIU/mL (0.55-4.78) Troponin I High Sensitivity < 3 ng/L (</=34) Test 07/02/24 00:42 07/01/24 23:35 D-Dimer, Quantitative 1.37 mg/L FEU (0.0-0.49) B-Type Natriuretic Peptide 23.54 pg/mL (0-100) Lipase 36 U/L (12-53) Other Laboratory Tests 07/03/24 06:03 Brief Hx & Hospital Course: Patient is a 74-year-old female with a past medical history as described below presented to the ED with a chief complaint of chest pain for a few hours prior to admission. Patient reported dull, right-sided chest pain, moderate 6-7/10 on intensity, nonradiating, occurred at rest while the patient was in a recliner, denied sweating, nausea vomiting abdominal pain. Patient was given 4 baby aspirins and nitroglycerin on route to the hospital by the EMS which relieved the pain. Patient reported that she feels short of breath on walking around in the house and recently had bilateral leg swelling for the last few days. Patient denies home oxygen. Reports history of sleep apnea. Past medical history: arthritis, ?Congestive Heart failure, rheumatoid arthritis, uterus cancer, breast cancer, history of aortic stenosis Past surgical history: Aortic valve replacement 2 years ago, hysterectomy, right breast surgery, back surgery for disc prolapse Social history: Lives with the in [place] and denies smoking, alcohol, drug use Home medication: Furosemide 40 mg once daily, metoprolol succinate 25 mg once daily, atorvastatin 40 mg once daily, apixaban 80 mg once daily, potassium 10 mEq b.i.d. Hospital course Initial 12 lead ECG showed left bundle-branch block with no evidence of acute ischemic changes, no ST changes, acute CT was ruled out is in the Sgarbossa criteria. Troponin level were within normal limits. Patient was put on aspirin 81 mg once daily and atorvastatin 40 mg once daily. D-dimer elevated following which CT angio chest was done which showed no evidence of acute pulmonary embolism and bilateral lower extremity ultrasound showed no evidence of femoropopliteal DVT. Patient reported orthopnea and snoring with stop Bang score 6, likely had obstructive sleep apnea which needs to be further evaluated in the outpatient clinic with the patient's PCP. Urinalysis showed elevated leukocyte esterase, elevated nitrite, urine WBCs for which the patient was given IV ceftriaxone. Patient's vitals were stable and she did not complain of chest pain throughout the course of hospital stay. Was discharged in stable condition to home. Review of systems Patient seen and examined at the bedside. Alert and oriented x4. At the time of examination, patient denies denied chest pain, palpitations, dizziness, shortness of breath. Patient reports orthopnea. Mild pedal edema more on the left foot than the right. Patient reports back pain. Denies dysuria, abdominal pain, fever, chills. Physical Examination Gen - no pallor, no icterus, no cyanosis, no clubbing, no LAD, 1+pedal edema Skin - Patients skin is warm and dry. HEENT - normocephalic, atraumatic, moist mucous membranes. Neck - full ROM, no LAD, no JVD Pulmonary - B/L vesicular breath sounds. no crackles , no wheezing, no stridor. cardiovascular - normal S1,S2 heard. no murmurs heard. peripheral pulses normal radial 2+, pedal 2+. capillary refill normal <2 secs. GI - soft abdomen without tenderness to palpation . no hepatospleenomegaly. Bowel sounds normoactive Neurological - Patient is A/O X 3 . Left upper extremity strength 5/5, right upper extremity strength 3/5, bilateral lower extremity strength 4/5, no facial droop, normal speech, no tremor, no sensory deficiets. Discharge plan Advised to follow up in the discharge clinic in 1 week and follow up with the PCP in 1-2 weeks. Patient was continued on home medication. Consults/Reason for consult no consultation Operations or Procedures Echo 2D Normal left ventricular size and dimension. Normal left ventricular systolic function estimated ejection fraction 50%. There is a grade 1 diastolic dysfunction. Normal right ventricular size and dimension. Normal right ventricular systolic function. Slightly increased right ventricular systolic pressure at 34 mm of mercury. Borderline dilated right and left atrium. Patient bioprosthetic aortic valve likely after transcutaneous aortic valve replacement. Well-seated normal gradient peak gradient of34 mean gradient of 14 no significant aortic valve regurgitation or stenosis was noted. The mitral valve is moderately thickened and calcific can not be visualized very well. Normal tricuspid valve structure and function. The pulmonary valve is grossly normal. No pericardial effusion. Ultrasound bilateral lower extremity No sonographic evidence of deep venous thrombosis throughout the bilateral lower extremities from the popliteal veins to the common femoral veins. CT angio chest contrast 1. Lung and Pleura: Linear fibrotic band in the right lower lobe and posterior pleural thickening. 2. No acute infiltrates or effusion. 3. Cardiovascular Findings: Mild cardiomegaly. 4. Stent in the aortic root. 5. Dilated pulmonary trunk (3.4 cm) and bilateral pulmonary arteries (~25 mm). Changes of pulmonary hypertension. No acute pulmonary thromboembolism. 6. Atherosclerotic calcification of the coronary arteries, aortic arch, origin of arch vessels, and descending thoracic aorta. 7. Significant tortuosity of the left common carotid artery. 8. Liver and Spleen: Mild hepatomegaly with fatty infiltration and features of liver parenchymal disease. 9. Borderline splenomegaly. 10. Kidneys: Probable small left kidney with compensatory hypertrophy of the right kidney. 11. Skeletal Findings: [id number] degenerative changes in the mid and lower thoracic spine with neural foraminal narrowing from T4-T5 to T9-T10 levels. 12. Severe bilateral glenohumeral joint degeneration with multiple calcified loose bodies in the right joint and probable partial resorption of the right humeral head. 13. Post-Surgical Changes: Post-laminectomy status at C5-C6 and C6-C7. Condition at Discharge: Good Final Diagnosis/Problems List # Acute chest pain, ACS ruled out, likely musculoskeletal # PE ruled out # Acute on chronic heart failure with preserved ejection fraction # Pulmonary hypertension ?ABIDA # UTI likely acute cystitis Discharge Disposition: Home Discharge Instruct/Medications Diet: Regular Activity: No Restrictions, As Tolerated Follow Up/Referral: Follow up with the PCP in one week Medications: as per EMR Discharge Statement: "Patient was advised to return to the ER or call 911 if any headaches, dizziness, shortness of breath, chest pain, abdominal pain, bleeding, fevers, or worsening of medical condition. Patient was counseled about treatment plan, medications, possible side effects, patientverbalized understanding. All questions were answered to the best of my ability. This discharge took greater then 30 minutes in planning, reviewing documentation, counseling the patient, and discussing with other team members." ASSESSMENT ASSESSMENT Assessment # Acute chest pain, ACS ruled out, likely musculoskeletal # PE ruled out # Acute on chronic heart failure with preserved ejection fraction # Pulmonary hypertension ?ABIDA # UTI likely acute cystitis Date of Service: Jul 03, 2024 Billing Provider: MILENA BULLOCK MD Common Visit Codes: [id number]/OBS DISCH DAY >30min CHUY VERONICA RESIDENT Jul 03, 2024 18:01 MILENA BULLOCK MD Jul 07, 2024 00:12
[2024-07-04] MEDS ORDERED: CEPH250C PO (16:46)
== END 2024-07-03 17:35 | disposition home or self-care (01) | DRG 291 ==
LOC: EDSEX 23:21 → EDBD 23:21 → ER 23:21 → TELE 07-02 01:42 → TELE-CENTR 07-02 09:24
PROVIDERS: ADMIT Student in an Organized Health Care Education/Training Program; ATTEND Student in an Organized Health Care Education/Training Program
DX: I11.0 Hypertensive heart disease with heart failure (principal); I50.33 Acute on chronic diastolic (congestive) heart failure; N30.00 Acute cystitis without hematuria; Z68.42 Body mass index [BMI] 45.0-49.9, adult; I44.7 Left bundle-branch block, unspecified; I27.20 Pulmonary hypertension, unspecified; M51.34 Other intervertebral disc degeneration, thoracic region; E66.9 Obesity, unspecified; E78.5 Hyperlipidemia, unspecified; D64.9 Anemia, unspecified; M19.09 Primary osteoarthritis, other specified site; G89.29 Other chronic pain; G47.33 Obstructive sleep apnea (adult) (pediatric); Z95.2 Presence of prosthetic heart valve; Z90.710 Acquired absence of both cervix and uterus; Z82.49 Family history of ischemic heart disease and other diseases of the circulatory system
CPT/HCPCS: 36415; 71045; 71275; 80048; 80053; 80061; 80307; 81001; 83036; 83690; 83735; 83880; 84443; 84484; 85025; 85379; 85610; 85652; 86141; 93005; 93306; 93970; 97163; G0378